=== PATIENT | female | born 2005 | race Caucasian/White ===

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

== ENCOUNTER 2024-09-08 18:01 | Emergency (ER) | payer MEDICAID ==
[~2024-09-08] VITALS: Ht 162.6 cm; Wt 109.0 kg
[2024-09-08 18:06] VITALS: O2SAT 100
[2024-09-08] MEDS: MAGNESIUM/ALUMINUM HYDROXIDE/SIMETHICONE 30ML UDC PO ONE (18:55)
[2024-09-08] MEDS: FAMOTIDINE 20MG TABLET PO ONE (18:56)
[2024-09-08 18:59] LABS: BASOPHILS % 0.1 % (0.0-2.0); EOSINOPHILS % 1.5 % (0.0-5.0); HEMATOCRIT. 38.4 % (36.0-48.0); HEMOGLOBIN. 12.4 g/dL (12.0-16.0); LYMPHOCYTES % 20.3 % (20.0-50.0); MEAN CORPUSCULAR HEMOGLOBIN 27.8 pg (28.0-32.0); MEAN CORPUSCULAR HGB CONC 32.4 g/dL (31.0-37.0); MEAN CORPUSCULAR VOLUME 85.7 fL (81.0-99.0); MEAN PLATELET VOLUME 8.4 fl (7.4-10.4); MONOCYTES % 6.5 % (2.0-8.0); NEUTROPHILS % 71.6 % (40.0-76.0); PLATELET 313 x1000/uL (130-400); RED BLOOD CELL COUNT 4.48 mill/uL (4.2-5.4); RED CELL DISTRIBUTION WIDTH 14.6 % (11.6-14.6); WHITE BLOOD COUNT 13.9 x1000/uL (4.5-11.0)
[2024-09-08 19:05] LABS: CHLORIDE 103 mEq/L (98-107); POTASSIUM 3.6 mEq/L (3.5-5.1); SODIUM 139 mEq/L (136-145)
[2024-09-08 19:06] LABS: CARBON DIOXIDE 28 mEq/L (21-32)
[2024-09-08 19:07] LABS: CALCIUM 9.4 mg/dL (8.7-10.4)
[2024-09-08 19:11] LABS: CREATININE 0.7 mg/dL (0.6-1.0); GLUCOSE 105 mg/dL (70-105)
[2024-09-08 19:12] LABS: UREA NITROGEN BLOOD 9 mg/dL (9-23)
[2024-09-08 19:13] LABS: ALANINE AMINOTRANSFERASE 37 IU/L (10-49); ALBUMIN 4.4 g/dL (3.2-4.8); ASPARTATE AMINOTRANSFERASE 61 IU/L (<34)
[2024-09-08 19:14] LABS: BILIRUBIN TOTAL 0.3 mg/dL (0.1-1.0); PROTEIN TOTAL 7.6 g/dL (6.0-8.3)
[2024-09-08 19:15] LABS: BILIRUBIN DIRECT < 0.1 mg/dL (<=3.0)
[2024-09-08] MEDS ORDERED: KETOROLAC 30MG/ML VIAL IM ONE (20:30)
[2024-09-08] MEDS ORDERED: IBUP-2029 MT (20:35)
[2024-09-08] MEDS ORDERED: ONDA-239 PO (20:35)
[2024-09-08 20:54] VITALS: BP 130/77; PULSE 80; RESP 14; TEMP 36.8; O2SAT 100
[2024-09-08] MEDS: KETOROLAC 15MG/ML VIAL IV ONE (20:54)
== END 2024-09-08 20:55 | disposition home or self-care (01) ==
LOC: ER 18:01
DX: K80.70 Calculus of gallbladder and bile duct without cholecystitis without obstruction (principal); E66.01 Morbid (severe) obesity due to excess calories
CPT/HCPCS: 99285; 96374; 76705; 80076; 80048; 83690; 85025; 36415; 93005; J1885

== ENCOUNTER 2025-01-26 06:00 | Emergency (ER) | payer MEDICAID ==
[~2025-01-26] VITALS: Ht 162.6 cm; Wt 105.0 kg
[~2025-01-26 06:00] MED LIST changes: +IBUP-2029 MT; +ONDA-239 PO
[2025-01-26 06:10] VITALS: O2SAT 99
[2025-01-26 07:09] LABS: BASOPHILS % 0.3 % (0.0-2.0); EOSINOPHILS % 3.7 % (0.0-5.0); HEMATOCRIT. 37.5 % (36.0-48.0); HEMOGLOBIN. 12.9 g/dL (12.0-16.0); LYMPHOCYTES % 28.2 % (20.0-50.0); MEAN PLATELET VOLUME 8.2 fl (7.4-10.4); MONOCYTES % 8.6 % (2.0-8.0); NEUTROPHILS % 59.2 % (40.0-76.0); PLATELET 319 x1000/uL (130-400); RED BLOOD CELL COUNT 4.51 mill/uL (4.2-5.4); RED CELL DISTRIBUTION WIDTH 14.9 % (11.6-14.6)
[2025-01-26 07:24] LABS: CREATININE 0.8 mg/dL (0.6-1.0); UREA NITROGEN BLOOD 11 mg/dL (9-23)
[2025-01-26 07:26] LABS: ASPARTATE AMINOTRANSFERASE 10 IU/L (<34); BILIRUBIN DIRECT < 0.1 mg/dL (<=3.0); BILIRUBIN TOTAL 0.3 mg/dL (0.1-1.0)
[2025-01-26 07:27] LABS: PROTEIN TOTAL 7.6 g/dL (6.0-8.3)
[2025-01-26 07:28] LABS: HCG SCREEN NEGATIVE
[2025-01-26] MEDS: ONDANSETRON HCL 4MG/2ML INJ IV ONE (08:10)
[2025-01-26] MEDS: KETOROLAC 15MG/ML VIAL IV ONE (08:11)
[2025-01-26] MEDS: SODIUM CHLORIDE 0.9% 1,000 ML IV ONE (08:11)
[2025-01-26] MEDS ORDERED: IBUP-2029 MT (08:50)
[2025-01-26] MEDS ORDERED: ONDA4TAB50 MT (08:51)
[2025-01-26 09:10] VITALS: BP 122/80; PULSE 71; RESP 16; TEMP 36.8; O2SAT 100
== END 2025-01-26 09:23 | disposition home or self-care (01) ==
LOC: ER 06:00
DX: K80.50 Calculus of bile duct without cholangitis or cholecystitis without obstruction (principal); Z87.19 Personal history of other diseases of the digestive system; Z79.899 Other long term (current) drug therapy
CPT/HCPCS: 80076; 80048; 81025; 84703; 83690; 85025; 36415; 76705; 96361; 96374; 96375; 99285; J1885; J2405; J7030; Z7610